=== PATIENT | female | born 1960 | race Caucasian/White ===

== ENCOUNTER → 2017-03-17 | Outpatient (CLI) | payer BC | END | disposition home or self-care (01) | LOC: CFH 13:21 | PROVIDERS: ATTEND Internal Medicine | DX: Z12.31 Encounter for screening mammogram for malignant neoplasm of breast (principal) | CPT/HCPCS: G0202 ==

== ENCOUNTER 2018-02-11 12:19 | Observation (INO) | payer BC ==
[~2018-02-11] VITALS: Ht 167.6 cm; Wt 67.1 kg
[2018-02-11] MEDS ORDERED: ASPIRIN 81 MG TABLET CHEW PO ONE (13:00)
[2018-02-11 13:11] LABS: BASOPHILS # (AUTO) 0.02 x10^3/uL (0-0.1); BASOPHILS % (AUTO) 0 % (0-1); EOSINOPHILS # (AUTO) 0.24 x10^3/uL (0-0.4); EOSINOPHILS % (AUTO) 3 % (1-7); LYMPHOCYTES # (AUTO) 2.47 x10^3/uL (1-3.4); LYMPHOCYTES % (AUTO) 27 % (22-44); MD NO; MEAN CORPUSCULAR HEMOGLOBIN 32.9 pg (27.0-34.8); MEAN CORPUSCULAR HGB CONC 34.4 g/dL (32.4-35.8); MEAN CORPUSCULAR VOLUME 95.7 fL (80-100); MEAN PLATELET VOLUME 8.4 fL (7.4-10.4); MONOCYTES # (AUTO) 0.52 x10^3/uL (0.2-0.8); MONOCYTES % (AUTO) 6 % (2-9); NEUTROPHILS # (AUTO) 6.03 x10^3/uL (1.8-6.8); NEUTROPHILS % (AUTO) 65 % (42-75); PLATELET COUNT 276 x10^3/uL (130-400); RED BLOOD COUNT 4.85 x10^6/uL (3.82-5.3); RED CELL DISTRIBUTION WIDTH 12.9 % (9.6-15.2)
[2018-02-11 13:23] LABS: ALANINE AMINOTRANSFERASE 41 U/L (12-78); ALBUMIN 4.1 g/dL (3.4-5.0); ANION GAP 9 mmol/L (5-15); CALCIUM 8.8 mg/dL (8.5-10.1); CHLORIDE 106 mmol/L (98-107); CREATININE 0.82 mg/dL (0.55-1.02)
[2018-02-11 13:27] LABS: ALKALINE PHOSPHATASE 137 U/L (45-117); BILIRUBIN,TOTAL 0.4 mg/dL (0.2-1.0); TOTAL PROTEIN 7.7 g/dL (6.4-8.2); TROPONIN I < 0.015 ng/mL (0.000-0.045)
[2018-02-11] MEDS ORDERED: AMIT10TA PO (14:19)
[2018-02-11] MEDS ORDERED: calcium PO (14:19)
[2018-02-11] MEDS ORDERED: VITA1TAB68 PO (14:19)
[2018-02-11] MEDS ORDERED: CHOL400D3 PO (14:19)
[2018-02-11] MEDS ORDERED: ASPI-515 PO (14:19)
[2018-02-11] MEDS ORDERED: BLUE500T PO (14:19)
[2018-02-11] MEDS ORDERED: COENZYME Q10 (14:19)
[2018-02-11] MEDS ORDERED: vitamin D PO (14:20)
[2018-02-11] MEDS ORDERED: TEMAZEPAM 15 MG CAPSULE PO PRN (15:30)
[2018-02-11] MEDS ORDERED: ACETAMINOPHEN 325 MG TABLET PO PRN (15:30)
[2018-02-11] MEDS ORDERED: ONDANSETRON 2MG/ML, 2ML IVPush PRN (15:30)
[2018-02-11] MEDS ORDERED: morphine SULFATE 10 MG/ML, 1ML IVPush PRN (15:30)
[2018-02-11] MEDS ORDERED: NITROGLYCERIN 0.4 MG/SPRAY SL PRN (15:30)
[2018-02-11] MEDS ORDERED: ONDANSETRON ODT 4 MG PO PRN (15:30)
[2018-02-11] MEDS ORDERED: ENALAPRILAT 1.25 MG/ML, 2ML IVPush PRN (15:30)
[2018-02-11] MEDS ORDERED: LABETALOL 5MG/ML, 20ML IVPush PRN (15:30)
[2018-02-11 15:53] VITALS: BP 124/78
[2018-02-11 17:17] VITALS: BP 115/77
[2018-02-11 18:15] VITALS: BP 116/72
[2018-02-11] MEDS ORDERED: AMITRIPTYLINE 10 MG TABLET PO SCH (21:00)
[2018-02-12 00:09] LABS: TROPONIN I < 0.015 ng/mL (0.000-0.045)
[2018-02-12 02:05] VITALS: BP 102/71
[2018-02-12 05:29] LABS: CHOLESTEROL, TOTAL 235 mg/dL (140-239); TRIGLYCERIDES 80 mg/dL (50-200); VLDL CHOLESTEROL 16 mg/dL (0-25)
[2018-02-12 05:32] LABS: CHOL/HDL RATIO 4.3; HDL CHOL % 23 % (28-40); HDL CHOLESTEROL (DIRECT) 55 mg/dL (40-60); LDL CHOLESTEROL,CALCULATED 164 mg/dL (54-169); TROPONIN I < 0.015 ng/mL (0.000-0.045)
[2018-02-12 06:56] VITALS: BP 101/67
[2018-02-12] MEDS ORDERED: PANTOPROZOLE 40MG TABLET PO SCH (07:30)
== END 2018-02-12 12:55 | disposition home or self-care (01) ==
LOC: ED 14:02 → EDIP 14:03 → INTOOBSV 14:03 → ED 14:11 → 5SO 15:44
PROVIDERS: ADMIT Internal Medicine; ATTEND Internal Medicine
DX: R07.89 Other chest pain (principal); E78.5 Hyperlipidemia, unspecified; K21.9 Gastro-esophageal reflux disease without esophagitis; E55.9 Vitamin D deficiency, unspecified; E78.00 Pure hypercholesterolemia, unspecified; G62.9 Polyneuropathy, unspecified; I25.10 Atherosclerotic heart disease of native coronary artery without angina pectoris; R42 Dizziness and giddiness; R61 Generalized hyperhidrosis; Z87.891 Personal history of nicotine dependence
CPT/HCPCS: 36415; 71046; 80053; 80061; 84484; 85025; 93005; 93017; 99285; G0378

== ENCOUNTER → 2018-10-11 | Outpatient (CLI) | payer BC ==
[~2018-10-11] MED LIST: AMIT10TA PO; ASPI-515 PO; ATOR10TA PO; BLUE500T PO; CALC600T4 PO; CHOL400D3 PO; COENZYME Q10; CYAN100072 PO; GABA300C10 PO; LACT1CAP37 PO; OMEP40CA6 PO; UBID100C24 PO; VITA1TAB68 PO; calcium PO; vitamin D PO
[2018-10-11 14:14] LABS: MICROSCOPIC NOT IND
[2018-10-11 14:17] LABS: BASOPHILS # (AUTO) 0.03 x10^3/uL (0-0.1); BASOPHILS % (AUTO) 1 % (0-1); EOSINOPHILS # (AUTO) 0.13 x10^3/uL (0-0.4); EOSINOPHILS % (AUTO) 2 % (1-7); LYMPHOCYTES # (AUTO) 1.89 x10^3/uL (1-3.4); LYMPHOCYTES % (AUTO) 26 % (22-44); MD NO; MEAN CORPUSCULAR HGB CONC 32.6 g/dL (32.4-35.8); MEAN PLATELET VOLUME 8.4 fL (7.4-10.4); MONOCYTES % (AUTO) 5 % (2-9); NEUTROPHILS # (AUTO) 4.96 x10^3/uL (1.8-6.8); NEUTROPHILS % (AUTO) 67 % (42-75); PLATELET COUNT 319 x10^3/uL (130-400); RED BLOOD COUNT 4.34 x10^6/uL (3.82-5.3); RED CELL DISTRIBUTION WIDTH 13.1 % (9.6-15.2)
[2018-10-11 14:19] LABS: INTERNATIONAL NORMALIZED RATIO 1.06 (0.93-1.1); PROTHROMBIN TIME 11.1 Seconds (9.6-11.5)
[2018-10-11 14:20] LABS: ALANINE AMINOTRANSFERASE 26 U/L (12-78); ALBUMIN 4.1 g/dL (3.4-5.0); ANION GAP 7 mmol/L (5-15); CALCIUM 9.6 mg/dL (8.5-10.1); CHLORIDE 106 mmol/L (98-107); CREATININE 1.02 mg/dL (0.55-1.02)
[2018-10-11 14:22] LABS: CULTURE INDICATED? NO
[2018-10-11 14:22] LABS: ALKALINE PHOSPHATASE 118 U/L (45-117); BILIRUBIN,TOTAL 0.4 mg/dL (0.2-1.0); TOTAL PROTEIN 7.3 g/dL (6.4-8.2)
== END | disposition home or self-care (01) ==
LOC: STAR 12:51
PROVIDERS: ATTEND Neurological Surgery
DX: Z01.818 Encounter for other preprocedural examination (principal); M96.0 Pseudarthrosis after fusion or arthrodesis; R94.31 Abnormal electrocardiogram [ECG] [EKG]; I51.7 Cardiomegaly
CPT/HCPCS: 36415; 71046; 80053; 81003; 85025; 85610; 85730; 93005

== ENCOUNTER 2018-10-28 07:00 | Inpatient (IN) | payer BC ==
[~2018-10-28] VITALS: Ht 167.6 cm; Wt 72.0 kg
[2018-10-28] MEDS ORDERED: BUPIVACAINE/EPI 0.5% 1:200K ONE (07:13)
[2018-10-28] MEDS ORDERED: BACITRACIN 50,000 UNIT ONE (07:13)
[2018-10-28] MEDS ORDERED: THROMBIN 20,000 UNIT VIAL TP ONE (07:13)
[2018-10-28 07:30] VITALS: BP 134/88
[2018-10-28 09:00] VITALS: BP 118/75
[2018-10-28] MEDS ORDERED: MIDAZOLAM 1 MG/ML, 2ML ONE (10:52)
[2018-10-28] MEDS ORDERED: FENTANYL PF 250 MCG/5ML ONE (10:52)
[2018-10-28] MEDS ORDERED: LIDOCAINE-MPF 2% ,5ML ONE (10:57)
[2018-10-28] MEDS ORDERED: DEXAMETHASONE 4 MG/ML, 1ML ONE ×2 (10:57→12:26)
[2018-10-28] MEDS ORDERED: PROPOFOL 50 ML ONE (10:58)
[2018-10-28] MEDS ORDERED: EPHEDRINE 50 MG/ML, 1ML IVPush PRN (12:00)
[2018-10-28] MEDS ORDERED: OXYcodone 5 MG/5 ML ORAL.SOL UDC PO PRN (12:00)
[2018-10-28] MEDS ORDERED: ACETAMINOPHEN 325 MG TABLET PO PRN (12:00)
[2018-10-28] MEDS ORDERED: LABETALOL 5MG/ML, 20ML IV PRN (12:00)
[2018-10-28] MEDS ORDERED: ONDANSETRON 2MG/ML, 2ML IV PRN (12:00)
[2018-10-28] MEDS ORDERED: MEPERIDINE/PF 25MG/0.5ML IVPush PRN (12:00)
[2018-10-28] MEDS ORDERED: ALBUTEROL SULFATE 2.5 MG/3 ML NPPB PRN (12:00)
[2018-10-28] MEDS ORDERED: DIAZEPAM 5 MG/ML, 2ML IVPush PRN (12:00)
[2018-10-28] MEDS ORDERED: PROMETHAZINE 25 MG/ML, 1ML IV PRN (12:00)
[2018-10-28] MEDS ORDERED: MIDAZOLAM 1 MG/ML, 2ML IV PRN (12:00)
[2018-10-28] MEDS ORDERED: PROMETHAZINE 12.5 MG SUPP PR PRN (12:00)
[2018-10-28] MEDS ORDERED: ONDANSETRON ODT 8 MG PO PRN (12:00)
[2018-10-28] MEDS ORDERED: HYDROmorphone 2 MG/ML, 1ML IVPush PRN ×2 (12:00→13:00)
[2018-10-28] MEDS ORDERED: MORPHINE SULFATE 4 MG/ML, 1ML IVPush PRN (12:00)
[2018-10-28] MEDS ORDERED: HALOPERIDOL 5 MG/ML IV PRN (12:00)
[2018-10-28] MEDS ORDERED: hydrALAzine 20 MG/ML, 1ML IV PRN (12:00)
[2018-10-28] MEDS ORDERED: ROCURONIUM 10MG/ML,5ML ONE (12:25)
[2018-10-28] MEDS ORDERED: ONDANSETRON 2MG/ML, 2ML ONE ×2 (12:25→12:26)
[2018-10-28] MEDS ORDERED: SUCCINYLCHOLINE 20 MG/ML, 10ML ONE (12:26)
[2018-10-28] MEDS ORDERED: CEFAZOLIN 1,000 MG ONE ×2 (12:26)
[2018-10-28] MEDS: TIZANIDINE 2MG TABLET PO SCH ×2 (13:00→21:07)
[2018-10-28] MEDS ORDERED: HYDROmorphone PCA 30 MG/30 ML IV PRN (13:00)
[2018-10-28] MEDS ORDERED: MAGNESIUM HYDROXIDE 8%, 30ML UDC PO PRN (13:00)
[2018-10-28] MEDS ORDERED: HYDROcodone/APAP 10/325 MG TABLET PO PRN (13:00)
[2018-10-28] MEDS ORDERED: DIAZEPAM 5 MG TABLET PO PRN (13:00)
[2018-10-28] MEDS ORDERED: METHOCARBAMOL 1,000 MG in DEXTROSE 5% 100 ML IV ONE (13:00)
[2018-10-28] MEDS ORDERED: PHARMACY MAY ADJ FOR RENAL FX MC PRN (13:00)
[2018-10-28] MEDS ORDERED: BISACODYL 10 MG SUPP PR PRN (13:00)
[2018-10-28] MEDS ORDERED: ONDANSETRON 2MG/ML, 2ML IVPush PRN (13:00)
[2018-10-28] MEDS ORDERED: MEPERIDINE/PF 100 MG/ML IM PRN (13:00)
[2018-10-28] MEDS ORDERED: PROMETHAZINE 25 MG/ML, 1ML IM PRN (13:00)
[2018-10-28] MEDS ORDERED: DIPHENHYDRAMINE 50 MG/ML, 1ML IVPush PRN (13:00)
[2018-10-28] MEDS ORDERED: OXYcodone 5 MG/5 ML ORAL.SOL UDC ONE (13:19)
[2018-10-28] MEDS ORDERED: FENTANYL PF 100 MCG/2ML ONE (13:19)
[2018-10-28] MEDS ORDERED: ACETAMINOPHEN 650 MG/20.3 ML UDC ONE (13:19)
[2018-10-28] MEDS: FENTANYL PF 100 MCG/2ML IV PRN ×3 (13:21→13:51)
[2018-10-28] MEDS: NS + 20MEQ KCL 1,000 ML IV SCH (14:30)
[2018-10-28] MEDS: GABAPENTIN 300 MG CAPSULE PO SCH ×2 (15:58→21:07)
[2018-10-28 19:06] VITALS: BP 101/51
[2018-10-28] MEDS: SODIUM CHLORIDE FLUSH 10ML SYR IVF SCH (21:00)
[2018-10-28] MEDS: ATORVASTATIN 10 MG TABLET PO SCH (21:07)
[2018-10-28] MEDS: CEFAZOLIN PMX 1GM/50ML 50 ML IVPB SCH (21:07)
[2018-10-28] MEDS: AMITRIPTYLINE 10 MG TABLET PO SCH (21:08)
[2018-10-29] VITALS (8 sets, daily range): BP systolic 90–124; BP diastolic 49–64
[2018-10-29] MEDS: NS + 20MEQ KCL 1,000 ML IV SCH ×2 (01:45→13:07)
[2018-10-29] MEDS: CEFAZOLIN PMX 1GM/50ML 50 ML IVPB SCH (05:14)
[2018-10-29] MEDS: TIZANIDINE 2MG TABLET PO SCH ×3 (05:14→21:50)
[2018-10-29] MEDS: GABAPENTIN 300 MG CAPSULE PO SCH ×3 (08:17→21:48)
[2018-10-29] MEDS: SENNA/DOCUSATE TABLET PO SCH (08:17)
[2018-10-29] MEDS: OMEPRAZOLE 20 MG CAPSULE.DR PO SCH (08:17)
[2018-10-29] MEDS: SODIUM CHLORIDE FLUSH 10ML SYR IVF SCH ×2 (08:18→21:50)
[2018-10-29] MEDS: OXYcodone/APAP 10/325MG TABLET PO PRN ×4 (08:51→21:49)
[2018-10-29] MEDS: ATORVASTATIN 10 MG TABLET PO SCH (21:49)
[2018-10-29] MEDS: AMITRIPTYLINE 10 MG TABLET PO SCH (21:49)
[2018-10-30 01:15] VITALS: BP 102/60
[2018-10-30] MEDS: NS + 20MEQ KCL 1,000 ML IV SCH ×2 (01:35→09:22)
[2018-10-30] MEDS: TIZANIDINE 2MG TABLET PO SCH (05:20)
[2018-10-30] MEDS: OXYcodone/APAP 10/325MG TABLET PO PRN ×2 (05:20→09:21)
[2018-10-30 07:02] VITALS: BP 92/59
[2018-10-30] MEDS ORDERED: OXYC-432 PO (08:52)
[2018-10-30] MEDS ORDERED: TIZA2TAB PO (08:52)
[2018-10-30] MEDS: GABAPENTIN 300 MG CAPSULE PO SCH (09:21)
[2018-10-30] MEDS: SENNA/DOCUSATE TABLET PO SCH (09:21)
[2018-10-30] MEDS: SODIUM CHLORIDE FLUSH 10ML SYR IVF SCH (09:22)
[2018-10-30] MEDS: OMEPRAZOLE 20 MG CAPSULE.DR PO SCH (09:22)
== END 2018-10-30 10:05 | disposition home or self-care (01) | DRG 29 ==
LOC: 4NOR 07:00 → DCLOUNGE 10-30 09:50
PROVIDERS: ADMIT Neurological Surgery; ATTEND Neurological Surgery
PROC: 0RG10J1 Fusion of Cervical Vertebral Joint with Synthetic Substitute, Posterior Approach, Posterior Column, Open Approach (ICD-10-PCS; 2018-10-28)
PROC: 4A11X4G Monitoring of Peripheral Nervous Electrical Activity, Intraoperative, External Approach (ICD-10-PCS; 2018-10-28)
PROC: 01N10ZZ Release Cervical Nerve, Open Approach (ICD-10-PCS; principal; 2018-10-28 10:00)
DX: M54.12 Radiculopathy, cervical region (principal); M96.0 Pseudarthrosis after fusion or arthrodesis; M48.02 Spinal stenosis, cervical region; K21.9 Gastro-esophageal reflux disease without esophagitis; Y83.8 Other surgical procedures as the cause of abnormal reaction of the patient, or of later complication, without mention of misadventure at the time of the procedure; Y82.8 Other medical devices associated with adverse incidents; E78.5 Hyperlipidemia, unspecified; Z79.899 Other long term (current) drug therapy; Z87.891 Personal history of nicotine dependence; Z82.61 Family history of arthritis; Z82.49 Family history of ischemic heart disease and other diseases of the circulatory system; Z83.3 Family history of diabetes mellitus; Z80.9 Family history of malignant neoplasm, unspecified; Z98.1 Arthrodesis status
CPT/HCPCS: 72040; J3490; 95938; 95941; C1713; G0378; J0690; J1100; J1170; J2250; J2405; J2704; J3010; J3480; C1762; J0330; J2800